=== PATIENT | male | born 1985 | race Caucasian/White ===

== ENCOUNTER 2019-01-27 07:35 | Emergency (ER) | payer OTHER ==
--- NOTE | 2019-01-27 07:43 | ED ---
Laceration/Wound HPI - HPI Summary HPI Summary: Patient is a 33-year-old male who presents emergency department for laceration to right hand that occurred just prior to arrival. 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 Patient unaware of his last tetanus immunization. Symptoms are mild in severity. No current modifying factors. - History of Current Complaint Stated Complaint: HAND LAC PER PT Time Seen by Provider: 01/27/19 07:42 Hx Obtained From: Patient Pain Intensity: 3 - Allergy/Home Medications Allergies/Adverse Reactions: Allergies Allergy/AdvReac Type Severity Reaction Status Date / Time Sulfa (Sulfonamide Allergy Unknown Verified 01/27/19 07:38 Antibiotics) Reaction Details opiates Allergy Unknown Uncoded 01/27/19 08:17 Reaction Details Home Medications: Home Medications Buprenorp/Nalox 8-2 MG SL TAB [Suboxone 8-2 mg SL TAB*] 0.5 tab PO BID 01/27/19 [History Confirmed 01/27/19] Lisdexamfetamine Dimesylate [Vyvanse] 50 mg PO DAILY 01/27/19 [History Confirmed 01/27/19] PMH/Surg Hx/FS Hx/Imm Hx Previously Healthy: Yes Infectious Disease History: No Infectious Disease History: Denies: Traveled Outside the [place] in Last 30 Days - Family History Known Family History: Positive: Non-Contributory - Social History Occupation: Employed Full-time Lives: With Family Review of Systems Positive: Other - laceration right hand Neurological: Negative Negative: Weakness, Paresthesia, Numbness All Other Systems Reviewed And Are Negative: Yes Physical Exam Triage Information Reviewed: Yes Vital Signs On Initial Exam: Initial Vitals Temp Pulse Resp BP Pulse Ox 97.5 F 84 18 135/71 99 01/27/19 07:38 01/27/19 07:38 01/27/19 07:38 01/27/19 07:38 01/27/19 07:38 Vital Signs Reviewed: Yes Appearance: Positive: Well-Appearing - Pt. sitting on bed in NAD. Dressing on right hand. Friend present. Skin: Positive: Warm, Dry Head/Face: Positive: Normal Head/Face Inspection Eyes: Positive: Normal, EOMI Neck: Positive: Supple Musculoskeletal: Positive: Other - 4cm linear deep laceration in between first and second digit. 0.5cm laceration just inferiorly. Full ROM digits. No bony tenderness. Neurological: Positive: Normal, CN Intact II-III Psychiatric: Positive: Affect/Mood Appropriate Procedures - Laceration/Wound Repair 1 Location: upper extremity - right hand Description: Linear Anesthesia: Local, 1.0%, Lido Length, Depth and Shape: 4cm and 0.5cm Betadine Prep?: No - hibiclens Irrigated w/ Saline (ccs): 300 Laceration/Wound Explored: clean Closure: Single Layer Suture Type: Nylon Number of Sutures: 7 Layer Closure?: No Sterile Dressing Applied?: Yes Diagnostics - Vital Signs Vital Signs Temp Pulse Resp BP Pulse Ox 01/27/19 07:38 97.5 F 84 18 135/71 99 - Laboratory Lab Statement: Any lab studies that have been ordered have been reviewed, and results considered in the medical decision making process. Laceration Repair Course/Dx - Course Course Of Treatment: Pt. with simple hand laceration. Tetanus updated. Wound was extensively cleaned and irrigated and closed above. Suture removal in 10 days. Avoid excessive hand movement. Discussed wound care. To return to ER for redness, swelling, or drainage from wound. Pt. understands and agrees with plan. - Differential Dx Differental Diagnoses: Laceration, Puncture Wound, Tendon Laceration - Clinical Impression Provider Diagnoses: Hand laceration Discharge ED - Sign-Out/Discharge Documenting (check all that apply): Patient Departure Patient Received Moderate/Deep Sedation with Procedure: No - Discharge Plan Condition: Improved Disposition: HOME Prescriptions: Cephalexin CAP* [Keflex CAP*] 500 mg PO BID #20 cap Patient Education Materials: Care For Your Stitches (ED) Referrals: [facility] [Outside] Additional Instructions: Suture removal in 10 days Take antibiotic as directed Keep wound clean and dry Clean with warm soap and water twice a day Avoid excessive movement of hand Tylenol or Motrin for pain as directed Return to ER for redness, swelling, or drainage from wound - Billing Disposition and Condition Condition: IMPROVED Disposition: Home
[2019-01-27] MEDS: Tetan/Diph/Pertus SYR(Tdap)* 0.5 ML SYR(BOOSTRIX) use SYR IM ONE (07:56)
[2019-01-27] MEDS: Lidocaine 1% MPF ** 5 ML VIAL INJ ONE (08:05)
[2019-01-27 08:35] VITALS: BP 131/78
== END 2019-01-27 08:34 | disposition home or self-care (01) ==
LOC: ED 07:35
DX: S61.411A Laceration without foreign body of right hand, initial encounter (principal); Z23 Encounter for immunization; W26.9XXA Contact with unspecified sharp object(s), initial encounter; Y92.89 Other specified places as the place of occurrence of the external cause; Y99.0 Civilian activity done for income or pay; Z79.899 Other long term (current) drug therapy; Z88.5 Allergy status to narcotic agent; Z88.2 Allergy status to sulfonamides
CPT/HCPCS: 12002; 90471; 90715; 99282